=== PATIENT | female | born 1955 | race Caucasian/White ===

== ENCOUNTER → 2016-05-27 | Outpatient (CLI) | payer BC ==
--- NOTE | 2016-05-27 10:14 | DI ---
MRI LUMBAR SPINE SCAN WITHOUT IV CONTRAST, 05/27/2016 8:56 AM: Clinical History: Low back pain at L4-5. Previous Exam: None. Technique: Sagittal and axial T2 weighted; sagittal T1 weighted and T2 STIR; and axial PD. The vertebral bodies are of normal height and size. There is severe disc space narrowing at L3-4 and L4-5 with moderate narrowing at L2-3. The L1-2 and L5-S1 disc spaces are of normal height. Lumbar dis c spaces show desiccation change. The cord terminates at T12-L1 and the conus medullaris is normal. T he disc spaces from T10-11 through L1-2 are normal. L2-3 has a circumferentially bulging but not yolande iated disc without canal or neural foraminal stenosis. L3-4 has a bulging but not herniated disc with out canal or neural foraminal stenosis. Hypertrophic changes are present in the apophyseal joints and ligamentum flavum bilaterally. L4-5 also has a circumferentially bulging but not herniated disc with out canal or neural foraminal stenosis and with hypertrophic changes of the apophyseal joints and lig amentum flavum. The L5-S1 disc space is normal. Readin. There are bulging but not herniated discs without canal or neural foraminal stenosis from L2-3 th rough L4-5. L3-4 and L4-5 also have hypertrophic degenerative changes of the apophyseal joints with h ypertrophic change of the ligamentum flavum. 2. The disc spaces from T10-11 through L1-2, and at L5-S1 are normal.
== END ==
LOC: MRI 08:51
PROVIDERS: ATTEND Nurse Practitioner Family
DX: M54.5 Low back pain (principal); M47.816 Spondylosis without myelopathy or radiculopathy, lumbar region
CPT/HCPCS: 72148

== ENCOUNTER 2016-06-04 07:20 | Day surgery (SDC) | payer BC ==
[~2016-06-04 07:20] MED LIST: LIDOCAINE W/ SODIUM BICARB 0.5 ML SYR ONE; Lactated Ringers 1,000 ML PRIMARY IV ONE
--- NOTE | 2016-06-04 08:57 | GEN.OPNOTE ---
EGD / Colonoscopy Report Surgery Date: 06/04/16 Preoperative Diagnosis: GERD. Colon cancer screening. Bright red blood per rectum. Postoperative Diagnosis: Same. Procedure: #1 esophagogastroduodenoscopy with biopsy. #2 complete colonoscopy. #3 internal hemorrhoidectomy by rubber band ligation. Surgeon: Ricardo Santos MD Anesthesia Provider: Jhoana Chavez CRNA Anesthesia Type: MAC Indications: See preoperative diagnosis. EGD Findings: Esophagus: [Normal] GE Junction : [Inflammation consistent with reflux] Fundus : [Normal] Body : [Normal] Prepyloric : [Normal] Small Intestine : [Normal] A lubricated flexible upper endoscope was inserted and passed through the esophagus and stomach into the duodenum. The duodenum and duodenal bulb were unremarkable. The scope was withdrawn back into the esophagus. All the esophageal mucosa was unremarkable. I opted to antral biopsies to rule out H. pylori. Hemostasis was assured. The scope was withdrawn to the distal esophagus. There was inflammation consistent with reflux. Multiple biopsies were taken. Hemostasis was assured. The scope was withdrawn through the remainder of a normal-appearing esophagus and brought through the hypopharynx under suction completing that portion of the procedure. Colonoscopy Findings: Prep : [Excellent] Cecum : [Normal] Ascending : [Normal] Transverse : [Normal] Sigmoid : [Normal] Rectum : [Normal] Digital Rectal Exam : [Combined external and internal hemorrhoids.] Anoscopy:[Combined external and internal hemorrhoids. Posterior internal hemorrhoid treated with rubber band ligation.] A lubricated flexible colonoscope was inserted and passed to the blind end of the cecum. The ileocecal valve and blind end of the cecum were clearly seen. Air was aspirated as the scope was withdrawn. The entire colonoscopy was normal without polyp, tumor, neoplastic mass, infectious or inflammatory process. The scope was retroflexed within the rectum. There were combined internal and a sternal hemorrhoids. After the scope was withdrawn and endoscope was inserted. There is a sizable posterior internal hemorrhoid amenable to banding which was performed. Anything else would require surgical excision. Patient tolerated the procedure well without complication. She was taken to outpatient surgery in stable condition. Follow-up will be with my office in 7-10 days. Colonoscopy recommended in 10 years. We will discuss the upper endoscopy biopsies as available.
[2016-06-04 09:41] VITALS: RESP 15; TEMP 97
== END 2016-06-04 09:18 | disposition home or self-care (01) ==
LOC: SDSC 07:20
PROVIDERS: ATTEND Surgery
DX: K62.5 Hemorrhage of anus and rectum (principal); K21.9 Gastro-esophageal reflux disease without esophagitis; Z12.11 Encounter for screening for malignant neoplasm of colon
CPT/HCPCS: 43239; 45378; 46221; J2704; J7120

== ENCOUNTER → 2016-08-05 | Outpatient (CLI) | payer BC ==
--- NOTE | 2016-08-06 14:27 | DI ---
LUMBAR SPINE SERIES, 08/05/2016 9:33 AM: Clinical History: Back pain at the L4-5 level. Previous Exam: None at this facility. Upright AP and lateral and upright lateral flexion and extension views are submitted. The vertebral b odies are of normal height and size. There is mild to moderate disc space narrowing at L2-3 and L4-5 with severe narrowing at L3-4. The L1-2 and L5-S1 disc spaces are of normal height. Posterior alignme nt is normal but there is posterior displacement of L4 on L5 with extension indicating motion at the L4-5 disc space. The pedicles are normal. Degenerative arthritic changes are present in the apophysea l joints bilaterally between L3-4 and L5-S1. Both SI joints are normal. Readin. There is chronic disc space narrowing from L2-3 through L4-5. In the neutral and flexion position , no alignment abnormality is noted but with extension there is posterior displacement of L4 on L5 in dicating motion at the L4-5 disc space level. 2. Degenerative arthritic changes are present bilaterally in the apophyseal joints from L3-4 through L5-S1.
--- NOTE | 2016-08-06 14:28 | DI ---
AP PELVIS and BILATERAL HIPS, 08/05/2016 9:33 AM : Clinical History: Back pain at the L4-5 disc space level. Previous Exam: None at this facility. There is no soft tissue abnormality. The bony structures of the pelvis are normal. 2 views of each hi p are normal. Reading: Normal AP pelvis and bilateral hip exam.
== END ==
LOC: ORTHO 10:03
PROVIDERS: ATTEND Physician Assistant
DX: M54.5 Low back pain (principal); M47.26 Other spondylosis with radiculopathy, lumbar region
CPT/HCPCS: 72110; 73521

== ENCOUNTER 2016-08-12 09:26 | Day surgery (SDC) | payer BC ==
[~2016-08-12 09:26] MED LIST changes: +BUPivacaine Inj 0.25% PF - 10ml vial EPIDURAL ONE; +DEXAMETHASONE PF 10 MG/1 ML VIAL IM ONE; +Iopamidol Inj 61% 50 ML VIAL INTRATHEC ONE; -LIDOCAINE W/ SODIUM BICARB 0.5 ML SYR ONE; -Lactated Ringers 1,000 ML PRIMARY IV ONE; +TRIAMCINOLONE ACETONIDE 40 MG/1 ML IAC ONE
[2016-08-12 09:43] VITALS: RESP 14
--- NOTE | 2016-08-12 10:38 | GEN.OPNOTE ---
Interlaminar ROSE Procedure: Interlaminar Epidural Steriod Injection Procedure Code - Neurosurgery: 42697 : Lumbar Epidural Injection (Single) Level: L23 Preoperative Diagnosis: Lumbar Degenerative Disc Disease -: Consent: Rationale for procedure, nature of procedure, possible risks and benefits were discussed with the patient. Risks including allergic reaction to medications, known effects of steroid medications including transient elevation in blood sugar with aggravation of pre-existing diabetes and remote risk of aseptic necrosis of the hip. Pain at the injection site, inadvertent dural puncture with resultant in CSF leak and headache possibly requiring further treatment. Infection or bleeding with potential risk of neurologic injury with weakness, paralysis or were all reviewed with the patient who wished to proceed. Anesthesia, sedation: No intravenous access or sedation was used. Physiologic monitoring of pulse and oxygen saturation was utilized. Procedure: The patient was placed prone on the operating room table, prepped with Chloroprep and sterilely draped. The skin was anesthetized with 1% Buffered Xylocaine. Under fluoroscopic control a 22-gauge Touhy needle was advanced into the epidural space at the L23 level. Using loss-of- resistance technique the epidural space was identified. Omnipaque was injected under real- time fluoroscopy demonstrating an epidurogram. Following this 5 ml of a mixture of kenalog (40mg/ml) dexamethasone (10mg/ml) and 1% lidocaine was injected epidurally. AP and lateral images of the final needle placement were obtained. The needle was removed and the patient returned to the post procedure recovery room where they were monitored for any side effects. Pain assessment: Preprocedure pain []/10, post procedure pain []/10. Discharge instructions: Patient was given a pain log to be filled out and returned. A delayed response to the steroids of 2-5 days was discussed.
[2016-08-12 10:43] VITALS: TEMP 97.4
== END 2016-08-12 10:40 | disposition home or self-care (01) ==
LOC: SDSC 09:26
PROVIDERS: ATTEND Pain Medicine Interventional Pain Medicine
DX: M51.36 Other intervertebral disc degeneration, lumbar region (principal)
CPT/HCPCS: 76000; J1100